=== PATIENT | male | born 1950 | race Caucasian/White ===

== ENCOUNTER 2020-08-25 10:42 | Emergency (ER) | payer MEDICARE, BC ==
[~2020-08-25] VITALS: Ht 172.7 cm; Wt 67.2 kg
--- NOTE | 2020-08-25 10:50 | NUR ---
URINARY RETENTION AND BLADDER PAIN FOR FIVE HOURS HX OF BPH ON NO MEDS NO FEVERS, ABNOMAL URINE COLOR/SMELL BLADDER SCAN OBTAINE >900. ERP ASKED FOR ORDERS. ORDERS RECEIVED FOR UROJET/CATH
--- NOTE | 2020-08-25 11:00 | NUR ---
AFTER LIDOCAINE UROJET ADMINISTERED PER EMAR-16F PENN CATHETER PLACED- FORM WHICH STERILE UA COLLECTED-SENT TO LAB
[2020-08-25] MEDS ORDERED: LIDOCAINE 2%,20 ML JEL.PF.APP MM ONE ×2 (11:04→12:30)
[2020-08-25 11:34] LABS: BASOPHILS % (AUTO) 0 % (0-1); EOSINOPHILS % (AUTO) 1 % (1-7); LYMPHOCYTES % (AUTO) 8 % (22-44); MEAN CORPUSCULAR HGB CONC 34.3 g/dL (33.2-36.2); MEAN PLATELET VOLUME 8.8 fL (7.4-10.4); MONOCYTES % (AUTO) 5 % (2-9); NEUTROPHILS % (AUTO) 87 % (42-75); PLATELET COUNT 176 x10^3/uL (130-400); RED CELL DISTRIBUTION WIDTH 13.5 % (9.4-14.8)
[2020-08-25 11:42] LABS: ALBUMIN 3.7 g/dL (3.4-5.0); ANION GAP 7 mmol/L (5-15); CALCIUM 8.7 mg/dL (8.5-10.1); CHLORIDE 107 mmol/L (98-107); CREATININE 1.03 mg/dL (0.7-1.3)
[2020-08-25 11:48] LABS: MICROSCOPIC NOT IND
--- NOTE | 2020-08-25 12:00 | NUR ---
1400ML DRAINED FROM CATHETER-ERP MADE AWARE. PATIENT NOW PAIN FREE ALL TESTING RESULTED- PLACED UP FOR RECHECK
[2020-08-25 12:42] VITALS: BP 128/93
--- NOTE | 2020-08-25 12:44 | NUR ---
discharged home after extensive education on care of leg bag/urimeter/cesar attachment device and importance of sterility. provided with many extra supplies for predicted needs teach back successful from patient/spouse
== END 2020-08-25 12:46 | disposition home or self-care (01) ==
LOC: ED 11:49
DX: N40.1 Benign prostatic hyperplasia with lower urinary tract symptoms (principal); R33.8 Other retention of urine
CPT/HCPCS: 36415; 51702; 80048; 81003; 82040; 85025; 99284

== ENCOUNTER 2020-09-24 23:48 | Emergency (ER) | payer MEDICARE, BC ==
[~2020-09-24] VITALS: Ht 172.7 cm; Wt 65.6 kg
--- NOTE | 2020-09-25 01:26 | NUR ---
AMBULATORY WITH STEADY GAIT FROM LOBBY TO ROOM 17
[2020-09-25 02:15] VITALS: BP 120/81
== END 2020-09-25 03:05 | disposition home or self-care (01) ==
LOC: ED 09-25 02:09
DX: L50.0 Allergic urticaria (principal); R21 Rash and other nonspecific skin eruption
CPT/HCPCS: 99283; J7512

== ENCOUNTER 2020-10-22 13:32 | Outpatient (CLI) | payer MEDICARE, BC ==
[2020-10-20 17:11] LABS: CREATININE 1.03 mg/dL (0.7-1.3)
[~2020-10-22 13:32] MED LIST: ALPR1TAB2 PO
== END 2020-10-22 23:59 | disposition home or self-care (01) ==
LOC: CFH 13:32
PROVIDERS: ATTEND Student in an Organized Health Care Education/Training Program
DX: Z13.6 Encounter for screening for cardiovascular disorders (principal); D68.51 Activated protein C resistance; R97.20 Elevated prostate specific antigen [PSA]; E78.00 Pure hypercholesterolemia, unspecified
CPT/HCPCS: 36415; 75571; 82565; 84153; 84520; G0103

== ENCOUNTER 2020-11-19 06:55 | Emergency (ER) | payer MEDICARE, BC ==
[~2020-11-19] VITALS: Ht 170.2 cm; Wt 62.1 kg
--- NOTE | 2020-11-19 07:45 | NUR ---
69 MALE HERE AFTER PROSTATE BX YESTERDAY. URINARY RETENTION NOW. LAST VOID [id number] APPROX 30ML. PT ATTEMPTED SELF CATH AT HOME. NOW PAIN IN BLADDER AND PENIS
--- NOTE | 2020-11-19 08:03 | NUR ---
PENN INSERTED AND CBI STARTED. SMALL CLOTS. REQUIRED IRRIGATION X1 OF 35CC
--- NOTE | 2020-11-19 09:02 | NUR ---
CBI CONTINOUS. PT DENIES PAIN. PENN DRAINING WELL
--- NOTE | 2020-11-19 09:05 | NUR ---
PENN CLAMPED AND CBI TURNED OFF PER ORDER
--- NOTE | 2020-11-19 09:56 | NUR ---
PENN UNCLAMPED AND DRAINED. BLOOD TINGED URINE NO CLOTS. 400ML OUT
--- NOTE | 2020-11-19 10:33 | NUR ---
IN TO SEE PT
[2020-11-19 11:54] LABS: MICROSCOPIC INDICATED
[2020-11-19 11:56] VITALS: BP 111/73
== END 2020-11-19 11:59 | disposition home or self-care (01) ==
LOC: ED 07:25
DX: N40.1 Benign prostatic hyperplasia with lower urinary tract symptoms (principal); R33.8 Other retention of urine
CPT/HCPCS: 51702; 81001; 99284; 99285